=== PATIENT | male | born 1955 | race Native Hawaiian/Other Pacific Islander ===

== ENCOUNTER 2016-05-16 09:36 | Day surgery (SDC) | payer OTHER ==
[2016-05-16] MEDS ORDERED: LIDOCAINE 2% MDV (20MG/ML) 20ML VIAL IV ONE (14:00)
[2016-05-16] MEDS ORDERED: PROPOFOL 10 MG/ML VIAL IV ONE (14:00)
--- NOTE | 2016-05-17 11:24 | Operative Note ---
DATE OF SURGERY: 05/16/2016. DICTATING TRUCK STRIKER: Rashaad Martinez D.O. dictating for Miguel Ángel Echevarria D.O. PREOPERATIVE INDICATION: This is a 60-year-old male undergoing surveillance for a history of adenomatous polyps. POSTOPERATIVE DIAGNOSIS: Poor prep throughout; incompletely examined colon. PROCEDURE: Colonoscopy, incomplete. ENDOSCOPIST: Miguel Ángel Echevarria D.O. TRUCK STRIKER: Rashaad Martinez D.O. ANESTHESIA: Anesthesia was provided by the Anesthesia Department. COMPLICATIONS: None. QUALITY OF PREPARATION: Poor. PROCEDURE: The procedure was thoroughly explained to the patient including risks, benefits, and alternatives. The patient had an opportunity to have his questions answered and sign informed written consent. The patient was transported to the endoscopy suite and placed in the left lateral decubitus position. His bowel preparation was of questionable cleanliness prior to the procedure, but stool was examined and felt to be adequate. A digital rectal examination was performed with no abnormalities felt. Good anal sphincter tone. Small external hemorrhoids were noted. A well -lubricated PCF-180 colonoscope was then inserted into the rectum and advanced to the transverse colon under direct visualization. There was evidence of poor prep throughout, and the procedure was aborted. The colon was examined as the colonoscope was withdrawn, with again poor prep throughout. Retroflexion was not performed in the rectum. The patient tolerated the procedure well and will be transported to Recovery in stable condition. Findings of the examination will be discussed with the patient in Recovery. RECOMMENDATIONS: Repeat colonoscopy due to poor prep. Reschedule for two to three months. MIGUEL ÁNGEL ECHEVARRIA D.O. Date Time cc: Bishop Aviles M.D. Job Number: [id number] MTDD
== END 2016-05-16 11:30 | disposition home or self-care (01) ==
LOC: HOP 09:36
PROVIDERS: ATTEND Internal Medicine Gastroenterology
DX: Z86.010 Personal history of colon polyps (principal)

== ENCOUNTER 2016-07-11 10:38 | Day surgery (SDC) | payer OTHER ==
[2016-07-11] MEDS ORDERED: LIDOCAINE 2% MDV (20MG/ML) 20ML VIAL IV ONE (15:32)
[2016-07-11] MEDS ORDERED: *PACU ONLY* KETAMINE HCL 10 MG/ML (20ML) VIAL IV ONE (15:32)
[2016-07-11] MEDS ORDERED: MIDAZOLAM HCL 2MG/2ML VIAL IV ONE (15:32)
[2016-07-11] MEDS ORDERED: PROPOFOL 10 MG/ML VIAL IV ONE (15:32)
--- NOTE | 2016-07-14 13:06 | Operative Note ---
DATE OF SURGERY: 07/11/2016. REFERRING PHYSICIAN: Bishop Aviles M.D. PROCEDURE: COLONOSCOPY to the cecum. Surgeon: Miguel Ángel Julien D.O. Indication: History of adenomatous polyps in the past. He returns at this time for surveillance. He was here earlier this year with a poor colon preparation and returned at this time after a 2 day prep. Intravenous sedation was administered by the Department of Anesthesiology and included Diprivan titrated to effect. PROCEDURE: Following informed consent from this alert individual, including a discussion of the risks and benefits of the procedure and an opportunity for the patient to ask questions, the patient was in the left lateral decubitus position. A digital rectal examination was performed. No abnormalities were detected. Following this, the Olympus PCF-180 video colonoscope was inserted into the rectum without resistance. The rectal mucosa had a normal appearance, with normal folds and distensibility. The colonoscope was advanced up through an extremely reductant colon to the level of the cecum with some difficulty. The bowel, as mentioned, was quite redundant and the patient, for a period of time, was on his back and then rolled back to the left lateral decubitus position. Abdominal pressure support was supplied by the nursing staff. The colon preparation was suboptimal with some retained stool particularly in the right colon. Washing and suctioning were employed vigorously throughout. The cecal pouch had retained stool noted within and it was difficult to visualize the appendiceal orifice because of this. Washing again was employed but as best visualized there were no mucosal changes appreciated. From the base of the cecum retroflexion was accomplished and failed to demonstrate abnormalities. From this point the colonoscope was then withdrawn. No mucosal changes were appreciated throughout the bowel though again the preparation was suboptimal with some focal areas of retained semisolid and solid stool. There was a copious amount of liquid stool also noted within the colon which was suctioned. Retroflexion in the rectum was endoscopically normal. The endoscope was removed. The patient tolerated the procedure well and was returned to the Recovery Area in stable condition. IMPRESSION: Extremely redundant colon with fair preparation noted. There was retained stool noted, particularly in the right colon. Washing and suctioning were employed vigorously throughout as described above. RECOMMENDATIONS: At this point I have recommended to the patient to have recheck colonoscopy in 1years' time with additional colon preparation. Further recommendation may be forthcoming then. He will follow up with Dr. Aviles. Miguel Ángel Julien DO CC: Bishop Aviles M.D., [address], [address] [facility]
== END 2016-07-11 12:47 | disposition home or self-care (01) ==
LOC: HOP 10:38
PROVIDERS: ATTEND Internal Medicine Gastroenterology
DX: Z09 Encounter for follow-up examination after completed treatment for conditions other than malignant neoplasm (principal); Q43.8 Other specified congenital malformations of intestine

== ENCOUNTER 2017-06-12 09:06 | Day surgery (SDC) | payer OTHER ==
[2017-06-12] MEDS ORDERED: PROPOFOL 10 MG/ML VIAL IV ONE (09:07)
[2017-06-12] MEDS ORDERED: LIDOCAINE 2% MDV (20MG/ML) 20ML VIAL IV ONE (09:07)
--- NOTE | 2017-06-14 10:30 | Operative Note ---
DATE OF SURGERY: 06/12/2017 OPERATION: COLONOSCOPY to the cecum. INDICATION: History of adenomatous polyps in the past. The patient returns at this time for surveillance. His last colonoscopy had a suboptimal prep and he returned in 1 year for reevaluation. ANESTHESIA: Intravenous sedation was administered by the department of anesthesiology and included Diprivan titrated to effect. PROCEDURE: Following informed consent from this alert individual including a discussion of the risks and benefits of the procedure and an opportunity for the patient to ask questions, the patient was in the left lateral decubitus position. A digital rectal examination was performed. No abnormalities were noted. Following this, the Olympus CFB906 video colonoscope was inserted into the rectum without resistance. The rectal mucosa had a normal appearance with normal folds and distensibility. The colonoscope was advanced up through the colon to the level of the cecum without much difficulty. Throughout the bowel the mucosa appeared normal, the folds were normal, and the bowel was fairly well distensible. The colon preparation was good. The cecum was defined by noting the appendiceal orifice and ileocecal valve. Retroflexion in the cecum was endoscopically normal. From the base of the cecum, the colonoscope was then withdrawn. There was some retained liquid stool noted most of which could be suctioned and washed away with water wash. As visualized, there were no polyps noted throughout. Retroflexion in the rectum was endoscopically normal. The endoscope was straightened and withdrawn. The patient tolerated the procedure well and was returned to the recovery area in stable condition. IMPRESSION: Unremarkable colonoscopy to the cecum. RECOMMENDATIONS: The patient was advised to have recheck colonoscopy in 5 years' time of sooner if problems arise. Follow up will be with Dr. Franklin Packer. As always, thank you for allowing me to participate in the care of your patient. CC: MD JUAN Selby
== END 2017-06-12 10:57 | disposition home or self-care (01) ==
LOC: HOP 09:06
PROVIDERS: ATTEND Internal Medicine Gastroenterology
DX: Z12.11 Encounter for screening for malignant neoplasm of colon (principal); Z86.010 Personal history of colon polyps